=== PATIENT | male | born 1965 | race Caucasian/White ===

== ENCOUNTER 2019-02-01 17:02 | Emergency (ER) | payer SELFPAY ==
[2019-02-01] MEDS ORDERED: Diphtheria,Pertussis(Acell),Tetanus Vaccine 0.5 ML Syringe IM ONE (17:25)
--- NOTE | 2019-02-01 17:36 | EDM.PDOC ---
ED HPI GENERAL MEDICAL PROBLEM - General Chief Complaint: Genitourinary Problem Stated Complaint: UNKNOWN Time Seen by Provider: 02/01/19 17:08 Source of Information: Reports: Patient History Limitations: Reports: No Limitations - History of Present Illness INITIAL COMMENTS - FREE TEXT/NARRATIVE: Presents reporting left testicular/scrotal trauma. He states that yesterday he was pounding on a piece of metal when a chunk flew off and hit his left scrotum after piercing 2 layers of clothing. He sustained a small laceration there. Today he has severe left testicular pain and tenderness. left testicle Pain Score (Numeric/FACES): 5 - Related Data Allergies Allergy/AdvReac Type Severity Reaction Status Date / Time No Known Allergies Allergy Verified 02/01/19 17:08 Home Meds: Home Meds Aspirin 81 mg PO DAILY 02/01/19 [History] Lisinopril 40 mg PO DAILY 02/01/19 [History] Past Medical History HEENT History: Reports: None Cardiovascular History: Reports: Hypertension Respiratory History: Reports: None Genitourinary History: Reports: None Musculoskeletal History: Reports: None Neurological History: Reports: None Psychiatric History: Reports: None Endocrine/Metabolic History: Reports: None Hematologic History: Reports: None Oncologic (Cancer) History: Reports: None Dermatologic History: Reports: None - Infectious Disease History Infectious Disease History: Reports: Chicken Pox - Past Surgical History Head Surgeries/Procedures: Reports: None GI Surgical History: Reports: Appendectomy Social & Family History - Family History Family Medical History: Noncontributory - Tobacco Use Smoking Status *Q: Never Smoker - Recreational Drug Use Recreational Drug Use: No ED ROS GENERAL - Review of Systems Review Of Systems: ROS reveals no pertinent complaints other than HPI. ED EXAM, RENAL/ - Physical Exam Exam: See Below Exam Limited By: No Limitations General Appearance: Alert, Mild Distress (Due to left scrotal tenderness/pain) Ears: Normal External Exam Nose: Normal Inspection Throat/Mouth: Normal Inspection Head: Atraumatic, Normocephalic Neck: Normal Inspection Respiratory/Chest: No Respiratory Distress, Lungs Clear Cardiovascular: Normal Peripheral Pulses, Regular Rate, Rhythm, No Murmur (Male) Exam: Circumcised, Scrotum Tenderness (L), Testicular Tenderness (L), Other (0.4 cm superficial laceration left medial scrotum without erythema, swelling, discharge or even scab in fact we had some difficulty finding it. The left testicle is without swelling but is exquisitely tender) Extremities: Normal Inspection Neurological: Alert, Oriented Psychiatric: Normal Affect, Normal Mood Lymphatic: No Adenopathy Course - Vital Signs Last Recorded V/S: Last Vital Signs Temp 36.4 C 02/01/19 17:10 Pulse 101 H 02/01/19 17:10 Resp 18 02/01/19 17:10 BP 146/95 H 02/01/19 17:10 Pulse Ox 96 02/01/19 17:10 - Orders/Labs/Meds Orders: Active Orders 24 hr Category Date Time Status Vaccines to be Administered [RC] PER UNIT ROUTINE Care 02/01/19 17:25 Active Scrotal Duplex Ltd [US] Stat Exams 02/01/19 17:33 Taken Meds: Medications Discontinued Medications Generic Name Dose Route Start Last Admin Trade Name Freq PRN Reason Stop Dose Admin Diphtheria/Tetanus/Acell Pertussis 0.5 ml 02/01/19 17:25 02/01/19 18:07 Adacel IM 02/01/19 17:26 0.5 ml .ONCE ONE Administration Ketorolac Tromethamine 60 mg 02/01/19 18:53 02/01/19 19:23 Toradol IM 02/01/19 18:54 Not Given ONETIME ONE - Re-Assessments/Exams Free Text/Narrative Re-Assessment/Exam: 02/01/19 19:42 Declined Toradol injection--does not like shots. Departure - Departure Time of Disposition: 19:42 Disposition: Home, Self-Care 01 Condition: Good Clinical Impression: Left testicular pain - Discharge Information Referrals: PCP,None [Primary Care Provider] - [facility] [Outside] [facility] [Outside] Forms: ED Department Discharge Additional Instructions: 1. Follow up with your primary provider. Indicate the 8mm irregularity on the left testicular ultrasound. 2. Ibuprofen 2-3 tabs 3 times daily as needed for pain. - My Orders Last 24 Hours: My Active Orders 02/01/19 17:25 Vaccines to be Administered [RC] PER UNIT ROUTINE - Assessment/Plan Last 24 Hours: My Active Orders 02/01/19 17:25 Vaccines to be Administered [RC] PER UNIT ROUTINE
[2019-02-01] MEDS ORDERED: Ketorolac 60 MG/2 ML SDV IM ONE (18:53)
--- NOTE | 2019-02-01 19:37 | US ---
INDICATION: Trauma left scrotum with pain and tenderness TECHNIQUE: Ultrasound of the scrotum and contents. Sonographic bustillo scale images were obtained with spectral and color Doppler waveform and spectral waveform analysis of the testicles. COMPARISON: None FINDINGS: Right testicle: Normal echotexture. No masses. No suspicious calcifications. Slightly decreased arterial and venous and blood flow using Doppler and spectral waveform analysis compared to the left. Left testicle: Normal echotexture millimeter ill-defined hypoechoic lesion involving the mid to left testicle no suspicious calcifications. Normal arterial and venous and blood flow using Doppler and spectral waveform analysis. Epididymis: The right and left epididymis are not well-visualized. Other: No sign of hydrocele. No sign of varicocele. Scrotal wall is normal. IMPRESSION: 8 millimeter ill-defined hypoechoic lesion mid left testicle the n of unknown o clinical significance. Follow-up recommended. Slightly decreased vascular flow involving the right testicle compared to the left. Findings are of no clinical significance. The epididymi are not well-visualized. Dictated by Ricco Norton MD @ 02/01/2019 7:36:48 PM Dictated by: Ricco Norton MD @ 02/01/2019 19:36:57 (Electronically Signed)
--- NOTE | 2019-02-03 15:13 | US ---
EXAM DATE: 02/01/19 PATIENT'S AGE: 53 Patient: MATTY QUARLES Facility: [facility] Site . Site : [id number] Study: US-Testicle [id number]/2/2019 6:10:21 PM Ordering Physician: Gillian Choe Final Report: INDICATION: Trauma left scrotum with pain and tenderness TECHNIQUE: Ultrasound of the scrotum and contents. Sonographic bustillo scale images were obtained with spectral and color Doppler waveform and spectral waveform analysis of the testicles. COMPARISON: None FINDINGS: Right testicle: Normal echotexture. No masses. No suspicious calcifications. Slightly decreased arterial and venous and blood flow using Doppler and spectral waveform analysis compared to the left. Left testicle: Normal echotexture millimeter ill-defined hypoechoic lesion involving the mid to left testicle no suspicious calcifications. Normal arterial and venous and blood flow using Doppler and spectral waveform analysis. Epididymis: The right and left epididymis are not well-visualized. Other: No sign of hydrocele. No sign of varicocele. Scrotal wall is normal. IMPRESSION: 8 millimeter ill-defined hypoechoic lesion mid left testicle the n of unknown o clinical significance. Follow-up recommended. Slightly decreased vascular flow involving the right testicle compared to the left. Findings are of no clinical significance. The epididymi are not well-visualized. Dictated by Ricco Norton MD @ 02/01/2019 7:36:48 PM Dictated by: Ricco Norton MD @ 02/01/2019 19:36:57 Signed by: Ricco Norton MD @02/01/2019 7:36:57 PM (Electronic Signature) Report Signed by Proxy. SLY
== END 2019-02-01 19:52 | disposition home or self-care (01) ==
LOC: MW.ED 17:02
DX: S31.31XA Laceration without foreign body of scrotum and testes, initial encounter (principal); I10 Essential (primary) hypertension; Z23 Encounter for immunization; Z90.49 Acquired absence of other specified parts of digestive tract; Z79.82 Long term (current) use of aspirin; Z79.899 Other long term (current) drug therapy; W20.8XXA Other cause of strike by thrown, projected or falling object, initial encounter
CPT/HCPCS: 76870; 76870-26; 90471; 90715; 93976; 93976-26; 99284-25